=== PATIENT | female | born 1995 | race African-American/Black ===

== ENCOUNTER 2020-11-22 18:50 | Emergency (ER) | payer MEDICAID ==
[~2020-11-22] VITALS: Ht 172.7 cm; Wt 95.0 kg
[2020-11-22 18:55] VITALS: BP 142/82
== END 2020-11-22 21:20 | disposition home or self-care (01) ==
LOC: ER 18:50
DX: Z48.02 Encounter for removal of sutures (principal); F15.10 Other stimulant abuse, uncomplicated; F41.9 Anxiety disorder, unspecified
CPT/HCPCS: 93005; 99283; Z7610